=== PATIENT | female | born 1945 | race Two or more races ===

== ENCOUNTER 2025-01-16 10:00 | Day surgery (SDC) | payer OTHER ==
[2025-01-15 12:20] LABS: URINE APPEARANCE Clear; URINE BILIRRUBIN Negative (NEGATIVE); URINE BLOOD Small; URINE COLOR Yellow; URINE GLUCOSE Negative (NEGATIVE); URINE KETONE Negative (NEGATIVE); URINE LEUKOCYTE Small; URINE NITRATE Negative; URINE PROTEIN Negative (NEGATIVE); URINE UROBILINOGEN 0.2 E.U./dl
[2025-01-15 12:22] LABS: URINE BACTERIA 21.5 uL (0.0-1933); URINE EPITHELIAL CELLS 21.9 uL (0.0-38.8); URINE RBC 32.7 uL (0.0-20.8); URINE WBC 8.3 uL (0.0-23.2)
[2025-01-15 12:25] LABS: URINE CAST 0.73 uL (0.0-1.40)
[2025-01-15 12:40] LABS: BASO % 0.5 % (0.1-1.2); EOS # 0.16 (0.04-0.54); EOS % 1.7 % (0.7-7.0); LYMPH # 2.24 (1.18-3.74); LYMPH % 23.9 % (19.3-53.1); MEAN PLATELET VOLUME 9.90 fl (9.4-12.4); MONO # 0.76 (0.24-0.82); MONO % 8.1 % (4.7-12.5); NEUT # 6.14 (1.56-6.13); NEUT % 65.6 % (34.0-71.1); RED CELL DISTRIBUTION WIDTH 14.5 % (11.6-14.4)
[2025-01-15 13:02] LABS: COVID-19 AG NEGATIVE (NEGATIVE)
[2025-01-15 13:10] LABS: ALT/SGPT 17.0 U/L (12-78); AST/SGOT 12.0 U/L (15-37); BILIRUBIN TOTAL 0.36 mg/dL (0.3-1.2); BUN CREA RATIO 22.0 (7.0-25.0); CREATININE SERUM 0.96 mg/dL (0.55-1.02); GFR 55.78; GLOBULINA 2.9 G/DL (2.4-3.5); GLUCOSE FASTING 89.0 mg/dL (65-100); INR 0.97; OSMOLALITY SERUM 291.0 MOSM/KG (275-295)
[2025-01-15 14:06] VITALS: BP 140/57
[~2025-01-16] VITALS: Ht 149.9 cm; Wt 54.4 kg
[~2025-01-16 10:00] MED LIST: ANASTROZOLE1 MG PO; BUPROPION XL450 MG; CEFAZOLIN SODIUM 1,000 MG VIAL ONE; COZAAR50 MG PO; CRESTOR40 MG; RESTORIL30 M1 PO; RIVASTIGMINE1.5 MG PO; XARELTO20 MG PO; ZOLOFT100 MG PO
== END 2025-01-16 11:04 | disposition home or self-care (01) ==
LOC: CIR.AMB 10:00 → EDBD 14:30 → CIR.AMB 14:30
PROVIDERS: ATTEND Surgery
DX: Z53.09 Procedure and treatment not carried out because of other contraindication (principal); C50.412 Malignant neoplasm of upper-outer quadrant of left female breast

== ENCOUNTER 2025-01-30 10:53 | Day surgery (SDC) | payer OTHER ==
[~2025-01-30 10:53] MED LIST changes: -CEFAZOLIN SODIUM 1,000 MG VIAL ONE
[2025-01-30] MEDS ORDERED: CEFAZOLIN SODIUM 1,000 MG VIAL ONE (11:17)
[2025-01-30] MEDS ORDERED: CHLORHEXIDINE GLUCONATE 120 ML BOTTLE TOP ONE (14:00)
== END 2025-01-30 18:10 | disposition home or self-care (01) ==
LOC: CIR.AMB 10:53
PROVIDERS: ATTEND Surgery
DX: C50.412 Malignant neoplasm of upper-outer quadrant of left female breast (principal)